=== PATIENT | female | born 1990 | race Caucasian/White ===

== ENCOUNTER 2022-12-02 14:41 | Emergency (ER) | payer MEDICAID ==
[~2022-12-02] VITALS: Ht 162.6 cm; Wt 75.0 kg
[2022-12-02] MEDS ORDERED: LORAZEPAM 0.5MG TABLET PO ONE ×2 (15:00→16:15)
[2022-12-02] MEDS ORDERED: ACETAMINOPHEN 325MG TABLET PO ONE (16:15)
[2022-12-02 17:21] VITALS: BP 112/65
== END 2022-12-02 17:25 | disposition home or self-care (01) ==
LOC: ER 14:51
DX: R00.2 Palpitations (principal); F41.9 Anxiety disorder, unspecified
CPT/HCPCS: 71045; 93005; 99284